=== PATIENT | female | born 1950 | race Caucasian/White ===

== ENCOUNTER 2020-07-20 09:20 | Day surgery (SDC) | payer MEDICARE, MEDICAID ==
[~2020-07-20 09:20] MED LIST: Lactated Ringers 1,000 ML IV SCH
[2020-07-20] MEDS ORDERED: Propofol 200 MG/20 ML SDV ONE ×2 (10:09→11:22)
[2020-07-20] MEDS ORDERED: fentaNYL 100 MCG/2 ML SDV ONE (10:09)
--- NOTE | 2020-07-20 14:55 | OR ---
PREOPERATIVE DIAGNOSIS: Positive FIT stool card. This is the patient's first colonoscopy. POSTOPERATIVE DIAGNOSES: 1. Total of 6 polyps removed. a. 4 mm polyp at the ileocecal valve removed using cold snare. b. 2 mm polyp at 100 cm removed using cold forceps. c. 6 mm polyp at 75 cm removed using hot snare. d. 6 mm polyp at 70 cm removed using hot snare. e. 5 mm polyp at 50 cm removed using hot snare. f. 2 mm polyp at 15 cm removed using cold forceps. 2. Normal-appearing distal ileum. 3. Mild external hemorrhoids. PROCEDURE: Colonoscopy with polypectomy x6 (3 using hot snare, 1 using cold snare, and 2 using cold forceps). SURGEON: Omid Sauer M.D. ANESTHESIA: Monitored anesthesia care. BOWEL PREP: Fair to good. DESCRIPTION OF PROCEDURE: Janet is a 70-year-old female who was brought to the endoscopy suite after discussing risks and benefits of the procedure. Informed consent was obtained for conscious sedation and colonoscopy with or without biopsy and/or polypectomy. We also discussed possibility of missed lesions. Pre-procedure exam was unremarkable. IV, oxygen, and monitors were placed. The patient was placed in the left lateral decubitus position. Sedation was administered and a digital rectal exam was performed and remarkable for some mild external hemorrhoids, not acutely inflamed. Colonoscope was passed into the rectum and slowly advanced all the way to the cecum. Cecum was viewed and photographed. The ileocecal valve was intubated and distal ileum was normal in appearance. The patient did have 4 mm polyp at the ileocecal valve, which was removed using cold snare. The ascending colon was remarkable for 2 mm polyp at 100 cm removed using cold forceps. The transverse colon revealed 6 mm polyps at 75 and 70 cm respectively. These were both removed using hot snare. The descending colon revealed a 5 mm polyp at 50 cm, removed using hot snare. The rectosigmoid area revealed 2 mm polyp at 15 cm, removed using cold forceps. Otherwise, the sigmoid colon was unremarkable. Retroflexion was performed. Rectal mucosa unremarkable. Scope was removed. The patient tolerated the procedure well. The patient was monitored until that baseline status. Discharge instructions were reviewed and the patient was discharged in good condition. COMPLICATIONS: None. TOTAL TIME: 35 minutes. ESTIMATED BLOOD LOSS: About 1 mL. RECOMMENDATIONS/FOLLOW-UP: We will await results of path report to determine ideal followup interval. I would like to kindly thank Dr. Marin for this referral. DMB: 07/20/2020 13:03:05 MODL: 07/20/2020 14:43:04 /[id number]
== END 2020-07-20 13:00 | disposition home or self-care (01) ==
LOC: VM.SDS 09:20
PROVIDERS: ATTEND Family Medicine
DX: D12.0 Benign neoplasm of cecum (principal); D12.6 Benign neoplasm of colon, unspecified; K64.4 Residual hemorrhoidal skin tags; G25.0 Essential tremor; L82.1 Other seborrheic keratosis; N95.1 Menopausal and female climacteric states; F32.9 Major depressive disorder, single episode, unspecified; E66.9 Obesity, unspecified; Z86.16 Personal history of COVID-19; Z90.49 Acquired absence of other specified parts of digestive tract; Z98.890 Other specified postprocedural states; Z79.899 Other long term (current) drug therapy; Z68.37 Body mass index [BMI] 37.0-37.9, adult; Z87.891 Personal history of nicotine dependence
CPT/HCPCS: 00812; 88305; J2704; J3010; J7120

== ENCOUNTER 2022-11-10 22:38 | Emergency (ER) | payer MEDICARE, MEDICAID ==
[2022-11-10] MEDS ORDERED: Acetaminophen/HYDROcodone 325-5 MG Tab PO ONE (23:00)
[2022-11-10] MEDS ORDERED: Take Home: Acetaminophen/HYDROcodone 325-5 MG, 5 Tab Pack PO ONE (23:48)
== END 2022-11-10 23:38 | disposition home or self-care (01) ==
LOC: VM.ED 22:38
DX: S20.211A Contusion of right front wall of thorax, initial encounter (principal); W18.30XA Fall on same level, unspecified, initial encounter; Y92.009 Unspecified place in unspecified non-institutional (private) residence as the place of occurrence of the external cause
CPT/HCPCS: 71100; 99283; 99284; A9270

== ENCOUNTER 2022-11-13 13:14 | Emergency (ER) | payer MEDICARE, MEDICAID | END 2022-11-13 14:20 | disposition home or self-care (01) | LOC: VM.ED 13:14 | DX: S16.1XXA Strain of muscle, fascia and tendon at neck level, initial encounter (principal); M62.838 Other muscle spasm; W10.9XXA Fall (on) (from) unspecified stairs and steps, initial encounter | CPT/HCPCS: 72040; 99283 ==